=== PATIENT | male | born 1965 | race Caucasian/White ===

== ENCOUNTER 2021-01-26 21:08 | Emergency (ER) | payer MEDICARE ==
[~2021-01-26] VITALS: Ht 198.1 cm; Wt 110.0 kg
[2021-01-26 21:13] VITALS: Ht 198.1 cm; Wt 110.0 kg
[2021-01-26] MEDS ORDERED: CYMBALTA20 MG PO (21:15)
[2021-01-26] MEDS ORDERED: SOMA250 MG PO (21:15)
[2021-01-26] MEDS ORDERED: HYDROCODON-ACE1 EA10 PO (21:16)
[2021-01-26 22:34] LABS: BASOPHILS 0.4 % (0-2); EOSINOPHILS 3.1 % (0-7); HEMATOCRIT 47.5 % (42.0-54.0); HEMOGLOBIN 15.8 g/dL (13.5-17.5); LYMPHOCYTES 30.8 % (15-50); MCH 27.1 pg (26.0-34.0); MCHC 33.3 g/dL (31.0-37.0); MCV 81.4 fL (80.0-100.0); MEAN PLATELET VOLUME 7.8 fL (7.4-10.4); MONOCYTES 9.8 % (2-11); NEUTROPHILS 55.9 % (40-80); RBC 5.84 10x6/uL (4.20-6.10); RDW 13.1 % (11.5-14.5); WBC 9.4 10x3/uL (4.8-10.8)
[2021-01-26 22:41] LABS: CALC OSMOLALITY 279 mosm/kg (275-300); CALCIUM 8.9 mg/dL (8.5-10.1); CHLORIDE - SERUM 102 mmol/L (98-107); GLUCOSE 118 mg/dL (74-106); POTASSIUM - SERUM 3.7 mmol/L (3.5-5.1); SODIUM 140 mmol/L (136-145); UREA NITROGEN 13 mg/dL (7-18); eGFR NON AFRICAN AMERICAN 82 mL/min (90-120)
[2021-01-26 22:42] LABS: PLATELET COUNT 301 10x3/uL (130-400)
[2021-01-26 23:01] LABS: ALBUMIN 4.1 g/dL (3.4-5.0); ALKALINE PHOSPHATASE 73 U/L (30-120); ALT (SGPT) 36 U/L (10-68); BILIRUBIN - TOTAL 0.43 mg/dL (0.2-1.3); CKMB 0.4 U/L (0.0-3.6); CREATINE KINASE 95 UL (21-232); MAGNESIUM - SERUM 2.1 mg/dL (1.8-2.4); PROTEIN - SERUM 8.6 g/dL (6.4-8.2); TROPONIN-I < 0.017 ng/mL (0.000-0.060)
[2021-01-26] MEDS ORDERED: LOPRESSOR25 MG PO (23:07)
[2021-01-26 23:44] VITALS: BP 162/89
[2021-01-27 00:48] LABS: INR 1.08 (0.85-1.17)
[2021-01-27 00:58] LABS: APTT 31.3 SECONDS (22.8-39.4)
== END 2021-01-26 23:20 | disposition home or self-care (01) ==
LOC: D.ER 21:08
PROVIDERS: Family Medicine
DX: R07.9 Chest pain, unspecified (principal); R00.2 Palpitations; I48.91 Unspecified atrial fibrillation; M54.9 Dorsalgia, unspecified